=== PATIENT | male | born 1935 | race Caucasian/White ===

== ENCOUNTER 2017-01-11 07:02 | Day surgery (SDC) | payer MEDICARE, BC ==
[~2017-01-11 07:02] MED LIST: Acetaminophen TAB* 325 MG PO PRN; Buffered Lidocaine 0.9% SYRIN* 5 ML/SYR SYRINGE INTRADERM ONE
[2017-01-11] MEDS ORDERED: fentaNYL* 50 MCG/ML 2 ML VIAL (100 MCG VIAL) ONE (07:56)
[2017-01-11] MEDS ORDERED: Midazolam* 1 MG/ML 5 ML VIAL (5 MG) ONE (07:57)
[2017-01-11 09:12] VITALS: BP 136/86
[2017-01-11] MEDS ORDERED: Tetracaine 0.5% OPTH.SOL 4 ML* 1 DROP BTL ONE (14:10)
[2017-01-11] MEDS ORDERED: Neomycin/Polymy/Dex OPHTH.OIN* 3.5 GM ONE (14:10)
[2017-01-11] MEDS ORDERED: Cyclopentolate 1% OPTH.SOL* 2 ML BTL ONE (14:10)
[2017-01-11] MEDS ORDERED: Tropicamide 1% OPTH.SOL* BTL ONE (14:10)
[2017-01-11] MEDS ORDERED: Buffered Lidocaine 0.9% SYRIN* 5 ML/SYR SYRINGE ONE (14:10)
[2017-01-11] MEDS ORDERED: Ketorolac 0.5% OPHTH (NF) 0.5 % 5 ML BTL ONE (14:10)
[2017-01-11] MEDS ORDERED: Lidocaine 1% MPF* 2 ML VIAL ONE (14:10)
[2017-01-11] MEDS ORDERED: Phenylephrine 2.5% OPTH.SOL* 2 ML BTL ONE (14:10)
--- NOTE | 2017-01-11 16:22 | OP ---
DATE OF OPERATION: 01/11/17 - [facility] DATE OF : 35 SURGEON: Dr. Gareth Calderon. DELIVERY SALES WORKER: None. ANESTHESIA: Topical with intravenous sedation. PRE-OP DIAGNOSIS: Cataract and glaucoma, right eye. POST-OP DIAGNOSIS: Cataract and glaucoma, right eye. OPERATIVE PROCEDURE: Phacoemulsification and cataract extraction with posterior chamber intraocular lens implant, right eye, with iStent placement. COMPLICATIONS: None. BLOOD LOSS: None. DESCRIPTION OF PROCEDURE: The patient was brought to the operating room and given a small amount of intra-venous sedation. A drop of tetracaine was placed into his right eye. The patient was prepped and draped in the usual sterile fashion for ophthalmic surgery, and attention was directed to the right eye where a speculum was placed. A paracentesis was created at the 11 o'clock position and 0.1 cc of 1% preservative-free lidocaine was injected into the anterior chamber followed by DisCoVisc. The eye was digitally stabilized while a 2.75-mm keratome was used to create a triplanar clear corneal incision at the 9 o'clock position. A continuous curvilinear capsulorrhexis was created with a cystotome and Utrata forceps. BSS on a cannula was used to hydrodissect the lens from the capsule. Phacoemulsification was performed in a divide-and- conquer technique to create 4 fragments, which were removed. Residual cortical material was removed with irrigation and aspiration. DisCoVisc was used to inflate the capsular bag. An AU00T0 19.0 diopter lens was folded and inserted into the capsular bag. Supplemental DisCoVisc was placed into the anterior chamber to deepen it. Further DisCoVisc was placed on the surface of the cornea. The patient's head was rotated away from the surgeon and the microscope was rotated toward the surgeon. A gonioprism was placed on the surface of the eye and an iStent on its lace cutter was introduced into the anterior chamber. Under direct visualization, the iStent was placed into the trabecular meshwork on the nasal aspect. The iStent lace cutter and the gonioprism were removed. The eye and microscope and the head were returned to a neutral position. Irrigation and aspiration was performed to remove viscoelastic from the eye. At the end of the case, the pupil was round. The lens was centered and stable. The iStent was stable. The eye pressure appeared normal and the wound was water tight. The speculum was removed and topical Maxitrol ointment was placed on the surface of the eye. The eye was closed, patched, and shielded, and the patient was sent to the recovery room in stable condition with postop instructions and followup appointment given. [id number]/CPS #: [id number] MTDD
== END 2017-01-11 09:06 | disposition home or self-care (01) ==
LOC: OREAST 07:02
PROVIDERS: ATTEND Ophthalmology
DX: H25.11 Age-related nuclear cataract, right eye (principal); H25.041 Posterior subcapsular polar age-related cataract, right eye; H40.89 Other specified glaucoma; F17.210 Nicotine dependence, cigarettes, uncomplicated
CPT/HCPCS: A9270-GY; C1783; J2250; J3010; V2632

== ENCOUNTER 2017-01-18 07:40 | Day surgery (SDC) | payer MEDICARE, BC ==
[~2017-01-18 07:40] MED LIST changes: -Acetaminophen TAB* 325 MG PO PRN
[2017-01-18] MEDS ORDERED: Midazolam* 1 MG/ML 2 ML VIAL (2 MG) ONE (09:17)
[2017-01-18 10:02] VITALS: BP 146/56
[2017-01-18] MEDS ORDERED: Tropicamide 1% OPTH.SOL* BTL ONE (15:08)
[2017-01-18] MEDS ORDERED: Ketorolac 0.5% OPHTH (NF) 0.5 % 5 ML BTL ONE (15:08)
[2017-01-18] MEDS ORDERED: Neomycin/Polymy/Dex OPHTH.OIN* 3.5 GM ONE (15:08)
[2017-01-18] MEDS ORDERED: Cyclopentolate 1% OPTH.SOL* 2 ML BTL ONE (15:08)
[2017-01-18] MEDS ORDERED: Tetracaine 0.5% OPTH.SOL 4 ML* 1 DROP BTL ONE (15:08)
[2017-01-18] MEDS ORDERED: Lidocaine 1% MPF* 2 ML VIAL ONE (15:08)
[2017-01-18] MEDS ORDERED: Phenylephrine 2.5% OPTH.SOL* 2 ML BTL ONE (15:08)
--- NOTE | 2017-01-19 01:42 | OP ---
DATE OF OPERATION: 01/18/17 - [facility] DATE OF : 35 SURGEON: Dr. Gareth Calderon. ROTARY DRILL RIG OPERATOR: None. ANESTHESIA: Topical with intravenous sedation. PRE-OP DIAGNOSIS: Cataract and glaucoma, left eye. POST-OP DIAGNOSIS: Cataract and glaucoma, left eye. OPERATIVE PROCEDURE: Phacoemulsification and cataract extraction with posterior chamber intraocular lens implant, left eye and iStent implant, left eye. COMPLICATIONS: None. BLOOD LOSS: None. DESCRIPTION OF PROCEDURE: The patient was brought to the operating room and received small amount of intravenous sedation. A drop of tetracaine was placed into his left eye. The patient was prepped and draped in the usual sterile fashion for ophthalmic surgery and attention was directed to the left eye, where a speculum was placed. A paracentesis was created at the 5 o'clock position. 0.1 cc of 1% preservative-free lidocaine was injected into the anterior chamber followed by DisCoVisc. The eye was digitally stabilized and a 2.75-mm keratome was used to create a triplanar clear corneal incision at the 3 o'clock position. A continuous curvilinear capsulorrhexis was created with a cystotome and Utrata forceps. BSS on a cannula was used to hydrodissect the lens from the capsule. Phacoemulsification was performed in a divide-and- conquer technique to create 4 fragments, which were removed. Residual cortical material was removed with irrigation and aspiration. DisCoVisc was used to inflate the capsular bag. An AU00T0 18.0 diopter lens was folded and inserted into the capsular bag. Supplemental DisCoVisc was used to deepen the anterior chamber. Further DisCoVisc was placed on to the surface of the cornea. The patient's head was rotated away from the surgeon and the microscope was rotated toward the surgeon. A gonioprism was placed on the surface of the eye. An iStent on its consumer safety officer was introduced into the anterior chamber. Under direct visualization to the prism, the iStent was placed atraumatically into the nasal trabecular meshwork. The consumer safety officer and the prism were removed. The patient's head and microscope were returned to a neutral position. Viscoelastic was removed from the anterior chamber and capsule. BSS on a cannula was used to hydrate the corneal stoma and seal the wound. At the end of the case, the pupil was round. The lens was centered and stable. The iStent was in place. The eye pressure appeared normal and the wound was watertight. The speculum was removed and topical Maxitrol ointment was placed on the surface of the eye. The eye was closed, patched, and shielded, and the patient was sent to the recovery room in stable condition with postop instructions and followup appointment given. [id number] #: [id number] LEE
== END 2017-01-18 09:54 | disposition home or self-care (01) ==
LOC: OREAST 07:40
PROVIDERS: ATTEND Ophthalmology
DX: H25.042 Posterior subcapsular polar age-related cataract, left eye (principal); H40.89 Other specified glaucoma; F17.210 Nicotine dependence, cigarettes, uncomplicated; M19.90 Unspecified osteoarthritis, unspecified site
CPT/HCPCS: A9270-GY; C1783; J2250; V2632

== ENCOUNTER 2023-12-28 16:09 | Inpatient (IN) ==
[2023-12-28] MEDS ORDERED: Vancomycin 1,000 MG in NS 0.9% 250 ml 250 ML IVPB SCH (17:00)
[2023-12-28] MEDS: Cefepime 2 GM in Dextrose 2 GM/50 ML BAG IV ONE (17:38)
[2023-12-28] MEDS: Lactated Ringers SEPSIS* BAG 1,770 ML IV ONE (17:38)
[2023-12-28 17:43] LABS: ABS Basophils 0.1 10^3/uL (0.0-0.1); ABS Eosinophils 0.1 10^3/uL (0.0-0.5); ABS Lymphocytes 0.7 10^3/uL (1.0-4.8); ABS Monocytes 0.6 10^3/uL (0.0-1.1); Eosinophil % 1.4 %; Hematocrit 36.9 % (38-53); Hemoglobin 12.5 g/dL (13.2-16.3); Lymphocyte % 9.3 %; Mean Corpuscular Hgb Conc 34.1 g/dL (31-36); Mean Corpuscular Volume 93.8 fL (80-97); Mean Platelet Volume 7.9 fL (7.5-11.2); Nucleated Red Blood Cells % 0.1 %/100WBC (0.0-0.8); Platelet Count 294 10^3/uL (150-450); Red Blood Count 3.93 10^6/uL (4.06-5.63); Red Cell Distribution Width 13.6 % (12-17); White Blood Count 7.5 10^3/uL (3.6-10.2)
[2023-12-28 18:27] LABS: Albumin 3.5 g/dL (3.2-5.2); Albumin/Globulin Ratio 0.9 (1-3); C Reactive Protein 52.05 mg/L (<8.01); Calcium 9.2 mg/dL (8.6-10.3); Creatinine, Serum 1.21 mg/dL (0.67-1.17); Globulin 3.7 g/dL (2-4); Potassium 4.5 mmol/L (3.5-5.0); Total Bilirubin 0.7 mg/dL (0.2-1.0); Total Protein 7.2 g/dL (6.4-8.9); eGFR CKD-EPI 57.6 (>60)
[2023-12-28 18:59] LABS: Erythrocyte Sed Rate 94 mm/Hr (0-19)
[2023-12-28] MEDS: Vancomycin 1,000 MG - ED ONCE IVPB ONE (20:10)
[2023-12-28] MEDS ORDERED: Vancomycin per Pharmacy 1 EA NOTE FOLLOW UP SCH (21:00)
[2023-12-28] MEDS: Gadoteridol (CONTRAST) 279.3 MG/ML 10 ML IV ONE (21:36)
[2023-12-28] MEDS: Enoxaparin 40 MG/0.4 ML SYR SUBCUT ONE (23:19)
[2023-12-29] MEDS: Cefepime 2 GM in Dextrose 2 GM/50 ML BAG IV SCH (05:09)
[2023-12-29 07:12] LABS: ABS Eosinophils 0.2 10^3/uL (0.0-0.5); ABS Lymphocytes 0.8 10^3/uL (1.0-4.8); ABS Monocytes 0.6 10^3/uL (0.0-1.1); ABS Neutrophils 4.5 10^3/uL (1.5-7.6); Hemoglobin 11.4 g/dL (13.2-16.3); Lymphocyte % 13.5 %; Mean Corpuscular Hemoglobin 32.3 pg (27-33); Mean Corpuscular Hgb Conc 34.5 g/dL (31-36); Mean Corpuscular Volume 93.8 fL (80-97); Platelet Count 256 10^3/uL (150-450); Red Blood Count 3.52 10^6/uL (4.06-5.63); Red Cell Distribution Width 13.6 % (12-17); White Blood Count 6.2 10^3/uL (3.6-10.2)
[2023-12-29] MEDS: Vancomycin 500 MG in NS 0.9% 250 ML IVPB SCH (07:27)
[2023-12-29 07:32] LABS: Calcium 8.6 mg/dL (8.6-10.3); Creatinine, Serum 1.11 mg/dL (0.67-1.17); Potassium 4.5 mmol/L (3.5-5.0); Total Bilirubin 0.7 mg/dL (0.2-1.0); eGFR CKD-EPI 63.9 (>60)
[2023-12-29 08:13] LABS: C Reactive Protein 43.46 mg/L (<8.01)
[2023-12-30 07:58] LABS: ABS Basophils 0.1 10^3/uL (0.0-0.1); ABS Eosinophils 0.1 10^3/uL (0.0-0.5); ABS Lymphocytes 0.8 10^3/uL (1.0-4.8); ABS Monocytes 0.6 10^3/uL (0.0-1.1); ABS Neutrophils 4.6 10^3/uL (1.5-7.6); ABS Nucleated RBC 0.02 10^3/ul; Eosinophil % 2.4 %; Hematocrit 38.3 % (38-53); Hemoglobin 12.2 g/dL (13.2-16.3); Lymphocyte % 12.4 %; Mean Corpuscular Hemoglobin 31.7 pg (27-33); Mean Corpuscular Hgb Conc 31.9 g/dL (31-36); Mean Corpuscular Volume 99.3 fL (80-97); Mean Platelet Volume 8.2 fL (7.5-11.2); Nucleated Red Blood Cells % 0.3 %/100WBC (0.0-0.8); Platelet Count 229 10^3/uL (150-450); Red Blood Count 3.85 10^6/uL (4.06-5.63); Red Cell Distribution Width 14.7 % (12-17); White Blood Count 6.2 10^3/uL (3.6-10.2)
[2023-12-30 08:36] LABS: Calcium 8.4 mg/dL (8.6-10.3); Creatinine, Serum 1.41 mg/dL (0.67-1.17); Potassium 4.9 mmol/L (3.5-5.0); eGFR CKD-EPI 47.9 (>60)
[2023-12-30 08:42] LABS: Vancomycin Trough 9.9 mcg/mL
[2023-12-30] MEDS: Vancomycin Trough Check NOTE FOLLOW UP ONE (10:30)
[2023-12-30] MEDS: Vancomycin 750 MG in NS 0.9% 250 ML IVPB SCH (10:32)
[2023-12-30] MEDS: Enoxaparin 30 MG/0.3 ML SYR SUBCUT SCH (17:55)
[2023-12-31 06:30] LABS: Calcium 8.4 mg/dL (8.6-10.3); Creatinine, Serum 1.18 mg/dL (0.67-1.17); Potassium 4.6 mmol/L (3.5-5.0); eGFR CKD-EPI 59.4 (>60)
[2024-01-01 02:24] LABS: Calcium 8.1 mg/dL (8.6-10.3); Creatinine, Serum 1.08 mg/dL (0.67-1.17); Potassium 4.6 mmol/L (3.5-5.0)
[2024-01-01 02:39] LABS: TSH Ultra Thyroid Stim Horm 3.88 mcIU/mL (0.34-5.60)
[2024-01-01 02:55] LABS: High Sensitivity Troponin 1 Hr 25 pg/mL (<20)
[2024-01-01 07:43] LABS: ABS Basophils 0.1 10^3/uL (0.0-0.1); ABS Eosinophils 0.2 10^3/uL (0.0-0.5); ABS Monocytes 0.7 10^3/uL (0.0-1.1); ABS Neutrophils 4.5 10^3/uL (1.5-7.6); Eosinophil % 3.8 %; Hematocrit 33.4 % (38-53); Hemoglobin 11.1 g/dL (13.2-16.3); Lymphocyte % 14.9 %; Mean Corpuscular Hemoglobin 31.1 pg (27-33); Mean Corpuscular Hgb Conc 33.2 g/dL (31-36); Mean Corpuscular Volume 93.8 fL (80-97); Mean Platelet Volume 8.4 fL (7.5-11.2); Platelet Count 257 10^3/uL (150-450); Red Blood Count 3.56 10^6/uL (4.06-5.63); Red Cell Distribution Width 13.8 % (12-17); White Blood Count 6.5 10^3/uL (3.6-10.2)
[2024-01-01 07:56] LABS: Calcium 8.3 mg/dL (8.6-10.3); Creatinine, Serum 1.05 mg/dL (0.67-1.17); Magnesium 2.1 mg/dL (1.9-2.7); Potassium 4.6 mmol/L (3.5-5.0); eGFR CKD-EPI 68.3 (>60)
[2024-01-01] MEDS: Vancomycin Trough Check NOTE FOLLOW UP ONE (10:47)
[2024-01-02 06:47] LABS: Hematocrit 36.3 % (38-53); Hemoglobin 12.4 g/dL (13.2-16.3); Mean Corpuscular Hemoglobin 32.2 pg (27-33); Mean Corpuscular Hgb Conc 34.2 g/dL (31-36); Mean Corpuscular Volume 94.1 fL (80-97); Mean Platelet Volume 8.2 fL (7.5-11.2); Platelet Count 249 10^3/uL (150-450); Red Blood Count 3.86 10^6/uL (4.06-5.63); Red Cell Distribution Width 14.1 % (12-17); White Blood Count 7.3 10^3/uL (3.6-10.2)
[2024-01-02 07:25] LABS: Calcium 8.7 mg/dL (8.6-10.3); Creatinine, Serum 1.1 mg/dL (0.67-1.17); Potassium 4.6 mmol/L (3.5-5.0); eGFR CKD-EPI 64.6 (>60)
[2024-01-02] MEDS ORDERED: Naloxone 0.4 mg VIAL 0.4 mg/ml 1 ml VIAL IV PUSH PRN (08:08)
[2024-01-02] MEDS ORDERED: Flumazenil 0.5 mg/5 ml 0.1 MG/ML 5 ml VIAL IV PRN (08:08)
[2024-01-02] MEDS ORDERED: fentaNYL 250 mcg/5 ml 50 MCG/ML 5 ml VIAL (250 MCG) ONE (11:47)
[2024-01-02] MEDS ORDERED: Midazolam 2 mg/2 ml VIAL 1 mg/ml 2 ml VIAL (2 mg) ONE (11:47)
[2024-01-02] MEDS ORDERED: Lidocaine 2% PF 5 ML VIAL ONE (11:47)
[2024-01-02] MEDS ORDERED: KETAMINE HCL 10 MG/ML 20 ml VIAL (200 MG) ONE (11:47)
[2024-01-02] MEDS ORDERED: Propofol 10 MG/ML 20 ML BTL ONE (11:47)
[2024-01-02] MEDS ORDERED: Dexamethasone IV 4 MG/ML VIAL 1 ml VIAL ONE (11:47)
[2024-01-02] MEDS ORDERED: Ondansetron 4 mg VIAL 2 MG/ML 2 ml VIAL ONE (11:47)
[2024-01-02] MEDS: Enoxaparin 30 MG/0.3 ML SYR SUBCUT ONE (15:38)
[2024-01-03 06:42] LABS: Hemoglobin 11.7 g/dL (13.2-16.3); Mean Corpuscular Hemoglobin 32.1 pg (27-33); Mean Corpuscular Hgb Conc 34.3 g/dL (31-36); Mean Corpuscular Volume 93.7 fL (80-97); Mean Platelet Volume 8.3 fL (7.5-11.2); Platelet Count 256 10^3/uL (150-450); Red Blood Count 3.63 10^6/uL (4.06-5.63); Red Cell Distribution Width 13.9 % (12-17); White Blood Count 6.4 10^3/uL (3.6-10.2)
[2024-01-03 07:34] LABS: Calcium 8.2 mg/dL (8.6-10.3); Creatinine, Serum 1.14 mg/dL (0.67-1.17); Potassium 4.5 mmol/L (3.5-5.0); eGFR CKD-EPI 61.9 (>60)
[2024-01-03] MEDS ORDERED: Sulfur Hexaflouride MICROSPHR 25 MG VIAL IV PRN (08:55)
[2024-01-03] MEDS: Vancomycin Trough Check NOTE FOLLOW UP ONE (10:37)
[2024-01-03] MEDS: fentaNYL 100 mcg/2 ml 50 MCG/ML VIAL IV SLOW PU ONE (17:56)
[2024-01-03] MEDS: Midazolam 10 mg/10 ml VIAL 1 mg/ml 10 ml VIAL (10 mg) IV SLOW PU ONE (17:56)
[2024-01-03] MEDS: Enoxaparin 40 MG/0.4 ML SYR SUBCUT ONE (20:52)
[2024-01-03] MEDS: Vancomycin 500 MG in NS 0.9% 250 ML IVPB SCH (21:04)
[2024-01-04] MEDS: Vancomycin Random Level NOTE FOLLOW UP ONE (09:08)
[2024-01-04 15:23] LABS: IgG Immunoblot Negative (Negative); IgM Immunoblot Negative (Negative)
[2024-01-04] MEDS ORDERED: Midazolam 5 mg/5 ml VIAL 1 mg/ml 5 ml VIAL (5 mg) ONE (16:01)
[2024-01-04] MEDS ORDERED: fentaNYL 250 mcg/5 ml 50 MCG/ML 5 ml VIAL (250 MCG) ONE (16:01)
[2024-01-04] MEDS ORDERED: Lidocaine 1% VIAL 10 MG/ML 30 ML VIAL ONE (16:01)
[2024-01-04] MEDS: Enoxaparin 40 MG/0.4 ML SYR SUBCUT ONE (20:38)
[2024-01-05 06:23] LABS: ABS Basophils 0.1 10^3/uL (0.0-0.1); ABS Eosinophils 0.4 10^3/uL (0.0-0.5); ABS Monocytes 0.7 10^3/uL (0.0-1.1); ABS Neutrophils 4.7 10^3/uL (1.5-7.6); Eosinophil % 5.4 %; Hematocrit 32.6 % (38-53); Hemoglobin 11.3 g/dL (13.2-16.3); Lymphocyte % 15.1 %; Mean Corpuscular Hemoglobin 32.3 pg (27-33); Mean Corpuscular Hgb Conc 34.6 g/dL (31-36); Mean Corpuscular Volume 93.3 fL (80-97); Mean Platelet Volume 8.1 fL (7.5-11.2); Platelet Count 222 10^3/uL (150-450); Red Blood Count 3.49 10^6/uL (4.06-5.63); Red Cell Distribution Width 14.4 % (12-17); White Blood Count 6.9 10^3/uL (3.6-10.2)
[2024-01-05 06:52] LABS: Calcium 8.5 mg/dL (8.6-10.3); Creatinine, Serum 1.2 mg/dL (0.67-1.17); Potassium 4.5 mmol/L (3.5-5.0); eGFR CKD-EPI 58.2 (>60)
[2024-01-05] MEDS: NS 0.9% 1000 ml BAG 1,000 ML IV SCH (09:33)
[2024-01-05] MEDS ORDERED: Iohexol 350 (CONTRAST) 100 ML PAK IV ONE (12:23)
[2024-01-05] MEDS ORDERED: Lidocaine 1% VIAL 10 MG/ML 30 ML VIAL ONE (12:23)
[2024-01-05] MEDS ORDERED: Heparin 2 UNITS/ML IVPREMIX 3,000 UNIT/1,500 ML BAG IV ONE (12:24)
[2024-01-05] MEDS ORDERED: Midazolam 5 mg/5 ml VIAL 1 mg/ml 5 ml VIAL (5 mg) ONE (12:28)
[2024-01-05] MEDS ORDERED: fentaNYL 100 mcg/2 ml 50 MCG/ML VIAL ONE ×2 (12:28→14:17)
[2024-01-05] MEDS ORDERED: Iodixanol 320 (CONTRAST) 100 ML SDV ONE (12:35)
[2024-01-05] MEDS ORDERED: Heparin 1,000 UNIT/ML 10 ml (10,000 UNITS) CATHLAB/DIALYSIS ONE (13:06)
[2024-01-05] MEDS ORDERED: nitroGLYCERIN DRIP 25,000 MCG/250 ML BTL ONE (13:39)
[2024-01-05] MEDS: Vancomycin Trough Check NOTE FOLLOW UP ONE (15:10)
[2024-01-05] MEDS: Vancomycin 1000 MG in NS 0.9% 250 ML IVPB SCH (15:24)
[2024-01-06 06:53] LABS: ABS Basophils 0.1 10^3/uL (0.0-0.1); ABS Eosinophils 0.3 10^3/uL (0.0-0.5); ABS Lymphocytes 0.8 10^3/uL (1.0-4.8); ABS Neutrophils 5.9 10^3/uL (1.5-7.6); Hematocrit 33.1 % (38-53); Hemoglobin 11.3 g/dL (13.2-16.3); Lymphocyte % 9.4 %; Mean Corpuscular Hgb Conc 34.3 g/dL (31-36); Mean Corpuscular Volume 93.3 fL (80-97); Mean Platelet Volume 8.2 fL (7.5-11.2); Platelet Count 211 10^3/uL (150-450); Red Blood Count 3.54 10^6/uL (4.06-5.63); Red Cell Distribution Width 14.4 % (12-17); White Blood Count 8.1 10^3/uL (3.6-10.2)
[2024-01-06 07:04] LABS: Calcium 8.4 mg/dL (8.6-10.3); Creatinine, Serum 1.15 mg/dL (0.67-1.17); Potassium 4.5 mmol/L (3.5-5.0); eGFR CKD-EPI 61.2 (>60)
[2024-01-06] MEDS: Enoxaparin 40 MG/0.4 ML SYR SUBCUT SCH (19:55)
[2024-01-08 07:47] LABS: Creatinine, Serum 1.16 mg/dL (0.67-1.17); eGFR CKD-EPI 60.6 (>60)
[2024-01-08 12:59] LABS: ABS Basophils 0.1 10^3/uL (0.0-0.1); ABS Eosinophils 0.4 10^3/uL (0.0-0.5); ABS Monocytes 1.1 10^3/uL (0.0-1.1); ABS Neutrophils 6.1 10^3/uL (1.5-7.6); Eosinophil % 4.7 %; Hematocrit 34.8 % (38-53); Hemoglobin 11.6 g/dL (13.2-16.3); Lymphocyte % 11.8 %; Mean Corpuscular Hemoglobin 31.2 pg (27-33); Mean Corpuscular Hgb Conc 33.3 g/dL (31-36); Mean Corpuscular Volume 93.7 fL (80-97); Platelet Count 211 10^3/uL (150-450); Red Blood Count 3.71 10^6/uL (4.06-5.63); Red Cell Distribution Width 14.7 % (12-17); White Blood Count 8.6 10^3/uL (3.6-10.2)
[2024-01-08 13:04] LABS: Calcium 8.6 mg/dL (8.6-10.3); Creatinine, Serum 1.14 mg/dL (0.67-1.17); Magnesium 2.1 mg/dL (1.9-2.7); Potassium 4.5 mmol/L (3.5-5.0); eGFR CKD-EPI 61.9 (>60)
[2024-01-09 10:02] LABS: Hematocrit 34.9 % (38-53); Hemoglobin 11.9 g/dL (13.2-16.3); Mean Corpuscular Hemoglobin 32.2 pg (27-33); Mean Corpuscular Hgb Conc 34.1 g/dL (31-36); Mean Corpuscular Volume 94.6 fL (80-97); Mean Platelet Volume 8.5 fL (7.5-11.2); Platelet Count 201 10^3/uL (150-450); Red Blood Count 3.69 10^6/uL (4.06-5.63); Red Cell Distribution Width 14.5 % (12-17); White Blood Count 8.3 10^3/uL (3.6-10.2)
[2024-01-09 10:49] LABS: Creatinine, Serum 1.14 mg/dL (0.67-1.17); Vancomycin Trough 14.8 mcg/mL; eGFR CKD-EPI 61.9 (>60)
[2024-01-09 10:50] LABS: Calcium 8.6 mg/dL (8.6-10.3); Creatinine, Serum 1.11 mg/dL (0.67-1.17); Potassium 4.4 mmol/L (3.5-5.0); eGFR CKD-EPI 63.9 (>60)
[2024-01-09] MEDS: Vancomycin Trough Check NOTE FOLLOW UP ONE (10:57)
[2024-01-09] MEDS ORDERED: Naloxone 0.4 mg VIAL 0.4 mg/ml 1 ml VIAL IV PRN (12:38)
[2024-01-09] MEDS ORDERED: fentaNYL 100 mcg/2 ml 50 MCG/ML VIAL IV PRN (12:38)
[2024-01-09] MEDS ORDERED: Ondansetron 4 mg VIAL 2 MG/ML 2 ml VIAL IV PRN (12:38)
[2024-01-09] MEDS ORDERED: Lidocaine 1% w EPI 1:200,000 SDV 30 ML VIAL ONE (12:47)
[2024-01-09] MEDS ORDERED: fentaNYL 100 mcg/2 ml 50 MCG/ML VIAL ONE (12:52)
[2024-01-09] MEDS ORDERED: NS 0.45% 1000 ml BAG 1,000 ML IV SCH (13:00)
[2024-01-09] MEDS ORDERED: ROPIVACAINE 5 MG/ML 30 ML BTL (0.5%) ONE (14:06)
[2024-01-09] MEDS ORDERED: ceFAZolin VIAL VIAL ONE (14:31)
[2024-01-09] MEDS: Acetaminophen IV 1 GM/100ML 1,000 MG/100 ML BAG IV ONE (18:12)
[2024-01-09] MEDS: Buffered Lidocaine 1% SYRIN 1 ml INTRADERM ONE (18:12)
[2024-01-09] MEDS: Lactated Ringers 1000 ml BAG 1,000 ML IV SCH (18:13)
[2024-01-09] MEDS ORDERED: Morphine 2 MG/ML SYRINGE IV PRN (18:24)
[2024-01-09] MEDS: Lactated Ringers 1000 ml BAG 1,000 ML IV ONE (18:29)
[2024-01-10 06:11] LABS: ABS Basophils 0.1 10^3/uL (0.0-0.1); ABS Eosinophils 0.3 10^3/uL (0.0-0.5); ABS Lymphocytes 0.8 10^3/uL (1.0-4.8); ABS Monocytes 1.3 10^3/uL (0.0-1.1); ABS Neutrophils 7.6 10^3/uL (1.5-7.6); Eosinophil % 2.9 %; Hematocrit 31.3 % (38-53); Hemoglobin 10.7 g/dL (13.2-16.3); Lymphocyte % 7.5 %; Mean Corpuscular Hemoglobin 32.2 pg (27-33); Mean Corpuscular Hgb Conc 34.3 g/dL (31-36); Mean Corpuscular Volume 93.9 fL (80-97); Mean Platelet Volume 8.5 fL (7.5-11.2); Platelet Count 191 10^3/uL (150-450); Red Blood Count 3.33 10^6/uL (4.06-5.63); Red Cell Distribution Width 14.5 % (12-17); White Blood Count 10.1 10^3/uL (3.6-10.2)
[2024-01-10 06:34] LABS: Calcium 8.3 mg/dL (8.6-10.3); Creatinine, Serum 1.12 mg/dL (0.67-1.17); Potassium 4.2 mmol/L (3.5-5.0); eGFR CKD-EPI 63.2 (>60)
[2024-01-10] MEDS: Enoxaparin 40 MG/0.4 ML SYR SUBCUT SCH (13:04)
[2024-01-11] MEDS: Amoxicillin/Clavul 875/125 TAB (Augmentin 875 tab) PO SCH (00:51)
[2024-01-11 06:27] LABS: ABS Basophils 0.1 10^3/uL (0.0-0.1); ABS Eosinophils 0.4 10^3/uL (0.0-0.5); ABS Monocytes 1.1 10^3/uL (0.0-1.1); ABS Neutrophils 5.4 10^3/uL (1.5-7.6); Eosinophil % 5.3 %; Hematocrit 30.2 % (38-53); Hemoglobin 10.5 g/dL (13.2-16.3); Lymphocyte % 13.1 %; Mean Corpuscular Hemoglobin 32.5 pg (27-33); Mean Corpuscular Hgb Conc 34.7 g/dL (31-36); Mean Corpuscular Volume 93.8 fL (80-97); Mean Platelet Volume 8.6 fL (7.5-11.2); Nucleated Red Blood Cells % 0.1 %/100WBC (0.0-0.8); Platelet Count 191 10^3/uL (150-450); Red Blood Count 3.22 10^6/uL (4.06-5.63); Red Cell Distribution Width 14.6 % (12-17)
[2024-01-11 06:47] LABS: Calcium 8.2 mg/dL (8.6-10.3); Creatinine, Serum 1.08 mg/dL (0.67-1.17); Potassium 4.3 mmol/L (3.5-5.0)
[2024-01-12] MEDS: Amoxicillin/Clavul 500/125 TAB (Augmentin 500 mg tab) PO SCH (09:16)
[2024-01-12 10:14] VITALS: BP 149/75
[2024-01-12 13:17] LABS: Rapid COVID-19 Molecular Undetected (Undetected)
[2024-01-13] MEDS ORDERED: Vancomycin Trough Check NOTE FOLLOW UP ONE (09:30)
== END 2024-01-12 13:10 | DRG 475 ==
LOC: ED 16:09 → EDHOLD 16:09 → SUATTDRO 19:00 → MED 23:14 → SUATTDRO 12-29 12:00 → SSU 01-09 15:58
PROVIDERS: ADMIT Internal Medicine; ATTEND Internal Medicine